=== PATIENT | female | born 1975 | race Caucasian/White ===

== ENCOUNTER → 2016-05-31 | Outpatient (CLI) | payer MEDICAID | LOC: MC.RAD 14:52 | DX: Z12.31 Encounter for screening mammogram for malignant neoplasm of breast (principal); D24.2 Benign neoplasm of left breast; D24.1 Benign neoplasm of right breast ==

== ENCOUNTER → 2017-02-08 | Outpatient (CLI) | payer MEDICAID ==
[~2017-02-08] VITALS: Ht 165.1 cm; Wt 106.1 kg
[~2017-02-08] MED LIST: MELATONIN5 M1 PO; [UNRECOGNIZED DRUG - OTHER] PO
[2017-02-08 14:16] VITALS: BP 144/82; PULSE 80
== END ==
LOC: LIGHT 13:40
DX: E78.5 Hyperlipidemia, unspecified (principal); F33.9 Major depressive disorder, recurrent, unspecified; E66.9 Obesity, unspecified; Z68.38 Body mass index [BMI] 38.0-38.9, adult; Z71.3 Dietary counseling and surveillance; J30.9 Allergic rhinitis, unspecified

== ENCOUNTER → 2017-03-15 | Outpatient (CLI) | payer MEDICAID ==
[~2017-03-15] VITALS: Ht 165.1 cm; Wt 107.0 kg
[2017-03-15 15:05] VITALS: BP 140/100; PULSE 60
== END ==
LOC: LIGHT 12:36
DX: E78.5 Hyperlipidemia, unspecified (principal); E88.81 Metabolic syndrome and other insulin resistance; E66.9 Obesity, unspecified; Z68.39 Body mass index [BMI] 39.0-39.9, adult; Z71.3 Dietary counseling and surveillance; J30.9 Allergic rhinitis, unspecified

== ENCOUNTER → 2017-04-03 | Outpatient (CLI) | payer MEDICAID | LOC: LIGHT 09:53 | DX: Z01.89 Encounter for other specified special examinations (principal) ==

== ENCOUNTER → 2017-04-09 | Outpatient (CLI) | payer MEDICAID ==
[~2017-04-09] VITALS: Ht 163.8 cm; Wt 108.2 kg
[2017-04-09 17:00] VITALS: BP 124/80; PULSE 64
== END ==
LOC: LIGHT
DX: E78.5 Hyperlipidemia, unspecified (principal); E88.81 Metabolic syndrome and other insulin resistance; E66.9 Obesity, unspecified; Z68.41 Body mass index [BMI] 40.0-44.9, adult; Z71.3 Dietary counseling and surveillance; J30.9 Allergic rhinitis, unspecified
CPT/HCPCS: G0463

== ENCOUNTER → 2017-05-29 | Outpatient (CLI) | payer MEDICAID | LOC: LIGHT 05-22 09:07 | DX: Z01.89 Encounter for other specified special examinations (principal) ==

== ENCOUNTER 2017-06-13 07:55 | Day surgery (SDC) | payer MEDICAID ==
[~2017-06-13] VITALS: Ht 162.6 cm; Wt 107.9 kg
[2017-06-13] VITALS (10 sets, daily range): BP systolic 123–145; BP diastolic 71–93; PULSE 84–105; TEMP 98–98.3
[2017-06-13] MEDS ORDERED: PRILOSEC 20MG20 MG PO (08:19)
[2017-06-13] MEDS ORDERED: MELATONIN5 M1 PO (08:19)
[2017-06-14 01:21] VITALS: BP 142/84; PULSE 105; TEMP 98.5
[2017-06-14 04:53] VITALS: BP 135/90; PULSE 102; TEMP 97.9
[2017-06-14 10:13] VITALS: BP 144/86; PULSE 92; TEMP 97.6
[2017-06-14 12:27] VITALS: BP 128/79; PULSE 85; TEMP 97.4
[2017-06-14 16:30] VITALS: BP 144/82; PULSE 80; TEMP 98.2
== END 2017-06-14 18:42 | disposition home or self-care (01) ==
LOC: SDCO 07:55 → SURG 12:25 → SDCO 06-14 18:42
DX: E66.01 Morbid (severe) obesity due to excess calories (principal); Z68.41 Body mass index [BMI] 40.0-44.9, adult; Z85.850 Personal history of malignant neoplasm of thyroid; F32.9 Major depressive disorder, single episode, unspecified; Z91.040 Latex allergy status; K29.50 Unspecified chronic gastritis without bleeding
CPT/HCPCS: OP; J0360; J0690; J1100; J1885; J2270; J2405; J2704; J2765; J3010; J7120

== ENCOUNTER → 2017-06-18 | Outpatient (CLI) | payer MEDICAID ==
[~2017-06-18] VITALS: Ht 162.6 cm; Wt 102.5 kg
[~2017-06-18] MED LIST changes: +PRILOSEC 20MG20 MG PO
[2017-06-18 14:50] VITALS: BP 106/70; PULSE 104
== END ==
LOC: LIGHT 08:55
DX: E78.5 Hyperlipidemia, unspecified (principal); E88.81 Metabolic syndrome and other insulin resistance; E66.9 Obesity, unspecified; Z68.38 Body mass index [BMI] 38.0-38.9, adult; Z71.3 Dietary counseling and surveillance; J30.9 Allergic rhinitis, unspecified

== ENCOUNTER → 2017-07-16 | Outpatient (CLI) | payer MEDICAID ==
[~2017-07-16] VITALS: Ht 162.6 cm; Wt 100.5 kg
[~2017-07-16] MED LIST changes: +B-121000 MCG; +CALCIUM 600MG+D1 TAB; +MASON NATURAL325 MG PO; +MULTIVITAMIN FO1 CAP PO; +VITAMIND3 5000
[2017-07-16 16:52] VITALS: BP 110/70; PULSE 100
== END ==
LOC: LIGHT 14:43
DX: E78.5 Hyperlipidemia, unspecified (principal); E88.81 Metabolic syndrome and other insulin resistance; E66.9 Obesity, unspecified; Z68.38 Body mass index [BMI] 38.0-38.9, adult; Z71.3 Dietary counseling and surveillance; J30.9 Allergic rhinitis, unspecified

== ENCOUNTER → 2017-07-25 | Outpatient (CLI) | payer MEDICAID | LOC: MC.RAD 14:20 | DX: Z12.31 Encounter for screening mammogram for malignant neoplasm of breast (principal); Z98.82 Breast implant status ==

== ENCOUNTER → 2017-09-10 | Outpatient (CLI) | payer MEDICAID ==
[~2017-09-10] VITALS: Ht 162.6 cm; Wt 99.1 kg
[2017-09-10 15:51] VITALS: BP 110/80; PULSE 72
== END ==
LOC: LIGHT 15:41
DX: E78.5 Hyperlipidemia, unspecified (principal); E88.81 Metabolic syndrome and other insulin resistance; E66.9 Obesity, unspecified; Z68.37 Body mass index [BMI] 37.0-37.9, adult; Z71.3 Dietary counseling and surveillance; Z98.84 Bariatric surgery status

== ENCOUNTER → 2017-12-17 | Outpatient (CLI) | payer MEDICAID ==
[~2017-12-17] VITALS: Ht 162.6 cm; Wt 96.2 kg
[2017-12-17 15:10] VITALS: BP 120/84; PULSE 76
== END ==
LOC: LIGHT 12:00
DX: E78.5 Hyperlipidemia, unspecified (principal); E88.81 Metabolic syndrome and other insulin resistance; Z98.84 Bariatric surgery status; E66.9 Obesity, unspecified; Z68.36 Body mass index [BMI] 36.0-36.9, adult; Z71.3 Dietary counseling and surveillance
CPT/HCPCS: G0463

== ENCOUNTER → 2018-06-03 | Outpatient (CLI) | payer SELFPAY ==
[~2018-06-03] VITALS: Ht 162.6 cm; Wt 95.3 kg
[~2018-06-03] MED LIST changes: +WELLBUTRIN XL150 MG PO
[2018-06-03 15:00] VITALS: BP 126/90; PULSE 60
== END ==
LOC: LIGHT 14:46
DX: E78.5 Hyperlipidemia, unspecified (principal); E88.81 Metabolic syndrome and other insulin resistance; Z98.84 Bariatric surgery status; E66.9 Obesity, unspecified; Z68.36 Body mass index [BMI] 36.0-36.9, adult; Z71.3 Dietary counseling and surveillance
CPT/HCPCS: G0463

== ENCOUNTER → 2018-08-05 | Outpatient (CLI) | payer MEDICAID | LOC: MC.RAD 15:00 | DX: Z12.31 Encounter for screening mammogram for malignant neoplasm of breast (principal); Z98.82 Breast implant status ==

== ENCOUNTER → 2019-01-28 | Outpatient (CLI) | payer MEDICAID | LOC: COL.RAD 01-27 07:30 | DX: D69.6 Thrombocytopenia, unspecified (principal); R16.1 Splenomegaly, not elsewhere classified ==

== ENCOUNTER → 2019-01-29 | Outpatient (CLI) | payer MEDICAID | LOC: MC.RAD 10:27 | DX: R59.9 Enlarged lymph nodes, unspecified (principal) ==

== ENCOUNTER → 2019-07-29 | Outpatient (CLI) | payer MEDICAID | LOC: COL.RAD 08:15 | DX: D69.6 Thrombocytopenia, unspecified (principal); R16.1 Splenomegaly, not elsewhere classified ==

== ENCOUNTER → 2019-09-30 | Outpatient (CLI) | payer MEDICAID | LOC: MC.RAD 14:52 | DX: Z12.31 Encounter for screening mammogram for malignant neoplasm of breast (principal) ==

== ENCOUNTER → 2019-11-12 | Outpatient (CLI) | payer MEDICAID | LOC: COL.RAD 11-11 08:15 | DX: J34.89 Other specified disorders of nose and nasal sinuses (principal); G44.89 Other headache syndrome ==

== ENCOUNTER 2019-12-30 14:15 | Outpatient (RCR) | payer MEDICAID | END 2020-01-06 | disposition home or self-care (01) | LOC: WSST | DX: R41.3 Other amnesia (principal) ==

== ENCOUNTER 2020-04-28 13:23 | Outpatient (CLI) | payer MEDICAID ==
[~2020-04-28] VITALS: Ht 162.6 cm; Wt 101.7 kg
[2020-04-28] VITALS (8 sets, daily range): BP systolic 94–126; BP diastolic 40–84; PULSE 73–89
[2020-04-28] MEDS ORDERED: ARICEPT 5MG PO (13:38)
[2020-04-28] MEDS ORDERED: ELAVIL100 MG PO (13:39)
[2020-04-28] MEDS ORDERED: CLARITIN 1010 MG/TAB PO (13:39)
[2020-04-28] MEDS ORDERED: CALCIUM 600MG+D1 TAB PO (13:40)
[2020-04-28] MEDS ORDERED: SYNTHROID 0.0.025 MG PO (13:40)
[2020-04-28] MEDS ORDERED: SINGULAIR 110 MG/TAB PO (13:41)
[2020-04-28] MEDS ORDERED: ATIVAN 0.50.5 MG/TAB PO (13:41)
[2020-04-28] MEDS ORDERED: MAG-OX 400400 MG/TAB PO (13:42)
[2020-04-28] MEDS ORDERED: iron PO (13:43)
[2020-04-28] MEDS ORDERED: MULTIPLE VITAMI1 TA5 PO (13:44)
[2020-04-28] MEDS ORDERED: TURMER PO (13:45)
--- NOTE | 2020-04-28 14:43 | NUR ---
Pt arrived to room 10 via cart,report from Darnell Pabon.
[2020-04-28 15:15] LABS: GLUCOSE,CSF 54 mg/dL (40-70); TOTAL PROTEIN,CSF 32 mg/dL (15-45)
[2020-04-28 15:56] LABS: CSF APPEARANCE CLEAR; CSF COLOR COLORLESS
[2020-04-28 15:57] LABS: CSF MONONUCLEAR 3 % (70-100); CSF POLYMORPHONUCLEAR 2 % (0-6); CSF RBC 0 /mm3 (0-0)
--- NOTE | 2020-04-28 15:58 | NUR ---
Discharge instructions given to pt.pt verbalizes understanding.Pt escorted out by this nurse via ambulatory.
== END 2020-04-28 16:02 | disposition home or self-care (01) ==
LOC: COL.RAD 13:23
PROVIDERS: Psychiatry & Neurology Neurology
DX: G43.109 Migraine with aura, not intractable, without status migrainosus (principal); E23.6 Other disorders of pituitary gland; G31.84 Mild cognitive impairment of uncertain or unknown etiology; Z82.0 Family history of epilepsy and other diseases of the nervous system

== ENCOUNTER → 2020-06-28 | Outpatient (CLI) | payer MEDICAID ==
[~2020-06-28] MED LIST changes: +ARICEPT 5MG PO; +ATIVAN 0.50.5 MG/TAB PO; +CALCIUM 600MG+D1 TAB PO; +CLARITIN 1010 MG/TAB PO; +ELAVIL100 MG PO; +MAG-OX 400400 MG/TAB PO; +MULTIPLE VITAMI1 TA5 PO; +SINGULAIR 110 MG/TAB PO; +SYNTHROID 0.0.025 MG PO; +TURMER PO; +iron PO
== END ==
LOC: COL.RAD 06-18 13:15
DX: G43.109 Migraine with aura, not intractable, without status migrainosus (principal); G44.89 Other headache syndrome

== ENCOUNTER → 2020-09-30 | Outpatient (CLI) | payer MEDICAID | LOC: MC.RAD 14:41 | DX: Z12.31 Encounter for screening mammogram for malignant neoplasm of breast (principal); Z98.82 Breast implant status ==

== ENCOUNTER → 2021-10-28 | Outpatient (CLI) | payer MEDICAID | LOC: MC.RAD 13:11 | DX: Z12.31 Encounter for screening mammogram for malignant neoplasm of breast (principal); N64.89 Other specified disorders of breast ==

== ENCOUNTER → 2021-11-03 | Outpatient (CLI) | payer MEDICAID | LOC: MC.RAD 13:00 | DX: R92.8 Other abnormal and inconclusive findings on diagnostic imaging of breast (principal) ==

== ENCOUNTER → 2024-01-23 | Outpatient (CLI) | payer MEDICAID | LOC: MC.RAD 13:40 | DX: Z12.31 Encounter for screening mammogram for malignant neoplasm of breast (principal) ==